=== PATIENT | male | born 1960 ===

== ENCOUNTER → 2017-12-25 | Outpatient (CLI) | payer BC ==
[~2017-12-25] MED LIST: HYDR-385 PO; KET10 PO
--- NOTE | 2017-12-25 16:31 | RADIOLOGY IMAGING REPORT ---
FACILITY: [facility] PATIENT NAME: Rodrick Pepper : 1960 MR: [id number] V: [id number] EXAM DATE: ORDERING PHYSICIAN: SANJANA RIVERA TECHNOLOGIST: Location: [facility] Patient: Rodrick Pepper : 1960 Visit/Account:[id number] Date of Sevice: 12/25/2017 3 views left knee and 3 views right knee Indication: Knee pain. Right knee popping. Comparison: None available Findings: Right knee: 3 views of the right knee are obtained. No acute fracture or dislocation is identified. There is no j oint effusion. Punctate density is seen within the anterior suprapatellar soft tissues. This may be s equela of prior soft tissue trauma or could even represent a vascular phlebolith. No joint space narr owing. Minimal osteophytes are seen. Left knee: 3 views of the left knee are obtained. No acute fracture or dislocation. No joint effusion. Bone chicho nd is seen within the proximal tibia. There are quadriceps insertional ossifications on the patella. Small 3 compartment osteophytes are present. Impression: 1. 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 Report Dictated By: Filiberto Guadalupe at 12/25/2017 4:23 PM Report E-Signed By: Filiberto Guadalupe at 12/25/2017 4:27 PM WSN:[id number]
== END ==
LOC: RAD 15:40
PROVIDERS: ATTEND Family Medicine
DX: M17.0 Bilateral primary osteoarthritis of knee (principal)